=== PATIENT | male | born 1940 | race Caucasian/White ===

== ENCOUNTER → 2021-10-01 | Outpatient (CLI) | payer MEDICARE, OTHER | END | disposition home or self-care (01) | LOC: PLD 11:28 → LAB SHORT 11:28 | DX: D04.4 Carcinoma in situ of skin of scalp and neck (principal) | CPT/HCPCS: 88305 ==

== ENCOUNTER 2022-07-03 10:12 | Day surgery (SDC) | payer OTHER ==
[~2022-07-03] VITALS: Ht 180.3 cm; Wt 85.7 kg
[~2022-07-03 10:12] MED LIST: ALDACTONE25 MG PO; ALOGLIPTIN25 M7 PO; ATOR20; B-12500 MC2 PO; CENTRUM SILVER1 EAC2 PO; Calcium Carbon500 MG PO; ELIQUIS5 M2 PO; ESCI10 PO; FISH OIL 1,2001 EAC4 PO; LEVEMIR FL100 UNIT/2; LISI20 PO; METF500 PO; METO100 PO; VITAMIN D31000 UNI1 PO
--- NOTE | 2022-07-03 10:52 | NUR ---
07/03/22 1052 Marlene Dash IN AT 1035 SONYA IN AT 1036
== END 2022-07-03 13:20 | disposition home or self-care (01) ==
LOC: ORSCSDS 10:12
PROVIDERS: Ophthalmology
PROC: 08DJ3ZZ Extraction of Right Lens, Percutaneous Approach (ICD-10-PCS; principal; 2022-07-03 11:30)
DX: H25.11 Age-related nuclear cataract, right eye (principal); Z96.1 Presence of intraocular lens; E11.9 Type 2 diabetes mellitus without complications; E78.5 Hyperlipidemia, unspecified; I10 Essential (primary) hypertension; F32.A Depression, unspecified; Z79.01 Long term (current) use of anticoagulants; Z79.84 Long term (current) use of oral hypoglycemic drugs; Z79.899 Other long term (current) drug therapy
CPT/HCPCS: 82947; J2001; J2250; J2704; J3010; J3301; J7040; V2632

== ENCOUNTER 2022-10-16 17:39 | Inpatient (IN) | payer OTHER ==
[~2022-10-16] VITALS: Ht 177.8 cm; Wt 83.7 kg
[2022-10-16 18:03] LABS: Base Excess Venous -26.5 mmol/L; Bicarbonate Venous 7.2 mmol/L (24.0-30.0); PCO2 Venous 19.9 mmHg (38-42)
[2022-10-16 18:13] LABS: Source, Urine Foley catheter
[2022-10-16 18:19] LABS: International Normalized Ratio 0.98; Prothrombin Time Results 10.3 Sec (9.7-11.5)
[2022-10-16 18:21] LABS: Appearance, Urine Clear (Clear); Bilirubin, Urine Neg (Neg); Blood, Urine Neg (Neg); Color, Urine Yellow (P-Yellow); Glucose Qualitative, Urine 4+ (Neg); Ketones, Urine 4+ (Neg); Leukocyte Esterase, Urine Neg (Neg); Nitrite, Urine Neg (Neg); Protein, Urine 1+ (Neg); Urobilinogen, Urine NORM (Normal)
[2022-10-16 18:30] LABS: Magnesium, Blood 2.5 mg/dL (1.6-2.4)
[2022-10-16 18:53] LABS: BASOPHILS ABSOLUTE AUTO 0.04 K/mm3 (0.00-0.23); BASOPHILS PERCENT AUTO 0 % (0-2); EOSINOPHILS ABSOLUTE AUTO 0.01 K/mm3 (0.00-0.68); EOSINOPHILS PERCENT AUTO 0 % (0-6); Hematocrit 31.7 % (37.0-53.0); Hemoglobin 10.9 g/dL (13.5-17.5); IMMATURE GRAN ABSOLUTE AUTO 0.37 K/mm3 (0.00-0.10); IMMATURE GRAN PERCENT AUTO 2 % (0-1); LYMPHOCYTES ABSOLUTE AUTO 0.75 K/mm3 (0.84-5.20); LYMPHOCYTES PERCENT AUTO 3 % (21-46); MONOCYTES ABSOLUTE AUTO 1.56 K/mm3 (0.16-1.47); MONOCYTES PERCENT AUTO 7 % (4-13); Mean Corpuscular HGB 36.3 pg (26.0-34.0); Mean Corpuscular Volume 106 fL (80-100); Mean Platelet Volume 10.7 fL (9.1-12.4); NEUTROPHILS ABSOLUTE AUTO 21.44 K/mm3 (1.96-9.15); NEUTROPHILS PERCENT AUTO 89 % (41-73); NRBC ABSOLUTE 0.03 K/mm3 (0.00-0.02); NRBC Auto 0.1 /100 WBC (0.0-0.2); Platelet Count 413 K/mm3 (150-400); RDW Coefficient Variation 14.3 % (11.7-14.2); RDW Standard Deviation 54.3 fL (35.1-46.3); White Blood Cell Count 24.17 K/mm3 (4.00-11.30)
[2022-10-16 19:01] LABS: Mean Corpuscular HGB Conc 34.4 g/dL (31.5-36.5)
[2022-10-16 19:10] LABS: Albumin/Globulin Ratio 0.8 (0.8-1.8); Beta-hydroxybutyrate 121.4 mg/dL (0.2-2.8); Bilirubin, Total 1.2 mg/dL (0.1-1.0); Bun/Creatinine Ratio 43.6 (12.0-20.0); Calcium, Blood 9.2 mg/dL (8.5-10.1); Creatinine, Blood 1.63 mg/dL (0.60-1.20); Globulin, Blood 3.9 g/dL (2.2-4.0); Potassium, Blood 5.3 mmol/L (3.5-5.5); Total Protein, Blood 6.9 g/dL (6.4-8.2)
[2022-10-16 20:21] LABS: Glucose, Blood 529 mg/dL (70-99)
[2022-10-16 21:33] LABS: Base Excess Venous -25.3 mmol/L; Bicarbonate Venous 7.9 mmol/L (24.0-30.0); PCO2 Venous 22.4 mmHg (38-42); pH Blood Venous 7.02 (7.34-7.37)
[2022-10-16 22:00] VITALS: BP 104/61
[2022-10-16 22:12] LABS: Bun/Creatinine Ratio 46.2 (12.0-20.0); Calcium, Blood 8.6 mg/dL (8.5-10.1); Creatinine, Blood 1.56 mg/dL (0.60-1.20); Potassium, Blood 4.5 mmol/L (3.5-5.5)
[2022-10-16 22:15] VITALS: BP 116/101
[2022-10-16 23:15] VITALS: BP 100/61
[2022-10-16 23:30] VITALS: BP 96/67
[2022-10-16 23:45] VITALS: BP 105/60
[2022-10-17] VITALS (53 sets, daily range): BP systolic 91–156; BP diastolic 38–123
--- NOTE | 2022-10-17 00:35 | NUR ---
PATIENT TO ROOM FROM ER AT 2210. PATIENT IS ALERT AND ORIENTED X4. SLOW TO RESPOND AND FORGETFUL AT TIMES. RIGHT EYE SWOLLEN, PUPIL FIXED, PT STATES HX OF CATARACT SURGERY BUT OVER THE LAST FEW WEEK VISION HAS BECOME MORE BLURRY, HOSPITALIST TO ROOM AND HEAD CT W/O CONTRAST ORDERED. 02 SATS >95% ON RA, [place] BREATHING, RR 28, DENIES SOB. HR A. FIB RVR, WITH PVCs, METOPROLOL PUSH GIVEN AND HR NOW A.FIB 100. BP STABLE, PATIENT DENIES CP/PRESSURE. PATIENT WITH NAUSEA AND VOMITING, MEDICATED PER EMAR. PATIENT INDEPENDENT WITH REPOSITIONING.
[2022-10-17 00:47] LABS: Base Excess Venous -21.6 mmol/L; Bicarbonate Venous 10.1 mmol/L (24.0-30.0); PCO2 Venous 21.4 mmHg (38-42); pH Blood Venous 7.15 (7.34-7.37)
[2022-10-17 01:15] LABS: Bun/Creatinine Ratio 47.4 (12.0-20.0); Calcium, Blood 8.6 mg/dL (8.5-10.1); Creatinine, Blood 1.52 mg/dL (0.60-1.20); Potassium, Blood 4.3 mmol/L (3.5-5.5)
[2022-10-17 01:23] LABS: Magnesium, Blood 2.3 mg/dL (1.6-2.4); Phosphorus, Blood 4.1 mg/dL (2.5-4.9)
[2022-10-17 04:32] LABS: Base Excess Venous -17.5 mmol/L; Bicarbonate Venous 12.2 mmol/L (24.0-30.0); PCO2 Venous 27.2 mmHg (38-42)
[2022-10-17 05:11] LABS: Bun/Creatinine Ratio 51.8 (12.0-20.0); Calcium, Blood 8.3 mg/dL (8.5-10.1); Creatinine, Blood 1.39 mg/dL (0.60-1.20); Magnesium, Blood 2.1 mg/dL (1.6-2.4); Phosphorus, Blood 2.4 mg/dL (2.5-4.9); Potassium, Blood 3.8 mmol/L (3.5-5.5)
[2022-10-17 06:25] LABS: BASOPHILS ABSOLUTE AUTO 0.03 K/mm3 (0.00-0.23); BASOPHILS PERCENT AUTO 0 % (0-2); EOSINOPHILS PERCENT AUTO 0 % (0-6); Hematocrit 27.7 % (37.0-53.0); Hemoglobin 9.9 g/dL (13.5-17.5); IMMATURE GRAN ABSOLUTE AUTO 0.16 K/mm3 (0.00-0.10); IMMATURE GRAN PERCENT AUTO 1 % (0-1); LYMPHOCYTES PERCENT AUTO 6 % (21-46); MONOCYTES ABSOLUTE AUTO 1.62 K/mm3 (0.16-1.47); MONOCYTES PERCENT AUTO 8 % (4-13); Mean Corpuscular HGB 35.7 pg (26.0-34.0); Mean Corpuscular HGB Conc 35.7 g/dL (31.5-36.5); Mean Platelet Volume 10.2 fL (9.1-12.4); NEUTROPHILS PERCENT AUTO 85 % (41-73); NRBC ABSOLUTE 0.03 K/mm3 (0.00-0.02); NRBC Auto 0.2 /100 WBC (0.0-0.2); Platelet Count 329 K/mm3 (150-400); RDW Coefficient Variation 14.2 % (11.7-14.2); RDW Standard Deviation 51.1 fL (35.1-46.3); Red Blood Cell Count 2.77 M/mm3 (4.30-5.90); White Blood Cell Count 19.91 K/mm3 (4.00-11.30)
[2022-10-17 06:26] LABS: Mean Corpuscular Volume 100 fL (80-100)
--- NOTE | 2022-10-17 07:01 | NUR ---
SHIFT SUMMARY PATIENT IS ALERT AND ORIENTED X3-4, APPEARS TO BE FORGETFUL AT TIMES. PATIENT PULLED POWERGLIDE AND IV. BED ALARM ON. 02 SATS 95% ON RA. HR A.FIB WITH PVCs 104. BP STABLE. PATIENT USES URINAL. INSULIN DRIP INF WELL D5 1/2 NS WITH KCL. CALL LIGHT IN REACH
--- NOTE | 2022-10-17 07:29 | NUR ---
ASSUMED CARE OF PATIENT.
--- NOTE | 2022-10-17 08:21 | NUR ---
PROVIDER PHONE CALL: Pt HR up into 150's. Dr Salomon called for IV metoprolol push
[2022-10-17 09:21] LABS: Bun/Creatinine Ratio 53.5 (12.0-20.0); Calcium, Blood 8.4 mg/dL (8.5-10.1); Creatinine, Blood 1.27 mg/dL (0.60-1.20); Phosphorus, Blood 2.3 mg/dL (2.5-4.9); Potassium, Blood 3.9 mmol/L (3.5-5.5)
[2022-10-17 11:57] LABS: Base Excess Venous -16.6 mmol/L; Bicarbonate Venous 12.7 mmol/L (24.0-30.0); PCO2 Venous 29.8 mmHg (38-42)
[2022-10-17 12:13] LABS: Bun/Creatinine Ratio 51.3 (12.0-20.0); Calcium, Blood 8.4 mg/dL (8.5-10.1); Creatinine, Blood 1.19 mg/dL (0.60-1.20); Potassium, Blood 4.1 mmol/L (3.5-5.5)
--- NOTE | 2022-10-17 12:15 | NUR ---
PROVIDER UPDATE: Dr Salomon updated on pt status. Dental hygenist identified sore in upper right corner of pt's mouth. This was relayed to provider. He was updated on VBG results as well as agitation and HR.
--- NOTE | 2022-10-17 15:51 | NUR ---
PROVIDER UPDATE: Dr Salomon at bedside for update on status. See new orders
[2022-10-17 16:05] LABS: Bun/Creatinine Ratio 50.5 (12.0-20.0); Calcium, Blood 8.4 mg/dL (8.5-10.1); Creatinine, Blood 1.05 mg/dL (0.60-1.20); Potassium, Blood 3.8 mmol/L (3.5-5.5)
--- NOTE | 2022-10-17 17:28 | NUR ---
PROVIDER UPDATE: Dr Salomon updated on HR in 80's. Digoxin was held.
--- NOTE | 2022-10-17 19:00 | NUR ---
END OF SHIFT ASSESSMENT: NEURO: PATIENT IS ORIENTED TO SELF ONLY. RIGHT FACIAL DROOP WITH PTOSIS. MAXILLOFACIAL CT TODAY. RESP: PATIENT HAS MAINTAINED SATS BETWEEN 95-100 DURING THIS SHIFT. CARDIO: PATIENT HAS BEEN IN AFIB WITH PVC'S ALL DAY AND TACHYCARDIC IN THE 130S-160S. PATIENT RECIEVED PO METOPOLOL AND IS NOW AFIB WITH PVC'S IN THE 80'S. GI/: PATIENT WAS STRAIGHT CATHED FOR RETENTION CONCERNS. HOWEVER, POST CATH BLADDER SCAN STILL SHOWED 400MLS ALTHOUGH BLADDER WAS EMPTY. PATIENT HAS A DARK/ BRUISE LOOKING SPOT ON HIS UPPER GUM. SEE PICTURES IN CHART. IV'S: 20G IV IN RIGHT HAND, 18 GUAGE IN LFA, 18G IN LAC. ALL LINES FLUSHING AND PATENT. SHIFT SUMMARY: PATIENT WAS SEEN BY DENTAL HYGENIST WHO FOUND THE SKIN ROSEY IN HIS MOUTH. SPEECH THERAPY CAME TO DO A SPEECH EVAL AND RECOMENDED A PUREE DIET. LATER THIS EVENING PATIENT WAS COUGHING AFTER RECIEVING APPLE SAUCE FOR MEDICATIONS. THIS WAS REPORTED TO LINE CREWMAN.
--- NOTE | 2022-10-17 19:00 | NUR ---
ASSUMED CARE OF PT AT 1900. PT SPOUSE IN ROOM WITH PT ALONG WITH A SITTER ON THE OUTSIDE OF ROOM LOOKING IN. PT IS CONSTANTLY MOVING AROUND IN BED. RAY IN PLACE. PT PICKING AT IV AND IS REDIRECTABLE AT THIS TIME. VITALS WNL AT THIS TIME. PLEASE SEE FULL ASSESSMENT FOR MORE INFORMATION.
[2022-10-17 20:08] LABS: Calcium, Blood 8.5 mg/dL (8.5-10.1); Potassium, Blood 3.8 mmol/L (3.5-5.5)
--- NOTE | 2022-10-17 20:53 | NUR ---
EPISTASIS NOTED AT THIS TIME. UPON EVALUATION SMALL AMOUNTS OF BLOOD STREAMING DOWN BACK OF THROAT AND UP THROUGH NOSE WHEN SITTING UP. WILL CONTINUE TO MONITOR.
[2022-10-18] VITALS (65 sets, daily range): BP systolic 68–176; BP diastolic 39–145
--- NOTE | 2022-10-18 01:36 | NUR ---
PT CONTINUOUSELY THRASHING IN BED. CALLED DR VELASCO. HALDOL 3 MG ONCE ORDERED. SITTER AT BEDSIDE.
--- NOTE | 2022-10-18 02:50 | NUR ---
PT CONTINUES TO BE VERY RESTLESS AND AGITATED. TRYING TO GET OUT OF BED AND PULLING AT LINES AND BRIEF. PT DENIES HAVING TO USE URINAL AND DENIES PAIN.
[2022-10-18 04:22] LABS: Bun/Creatinine Ratio 42.9 (12.0-20.0); Calcium, Blood 8.5 mg/dL (8.5-10.1); Creatinine, Blood 0.82 mg/dL (0.60-1.20); Potassium, Blood 3.9 mmol/L (3.5-5.5)
[2022-10-18 05:28] LABS: pH Blood Arterial 7.38 (7.35-7.45)
[2022-10-18 05:29] LABS: PCO2 Arterial 30.6 mmHg (35-45)
--- NOTE | 2022-10-18 06:52 | NUR ---
PT INTUBATED AND SEDATED AT 0606 TODAY. ETOM 15 MG AT 0604 ROCC 100MG AT 0605 ETT AT 8.0 -0606 26 GUMS POS COLOR CHANGE POS BREATH SOUNDS MELLISA ABD SOUNDS OG PLACED AT 0613
--- NOTE | 2022-10-18 07:06 | NUR ---
END OF SHIFT SUMMARY PT RESTLESS AND AGITATED ALL THIS SHIFT. PT COGNITIVE LEVEL DECREASED OVERNIGHT WELL. OXYGEN SUPPLEMENTATION NEEDED THIS AM BEFORE INTUBATION. PT BECAME MORE TACHYPNEIC WITH RR 35-40'S. PT BEGAN TO NOT OBEY COMMANDS AND SHIFTING MORE IN BED. PLEASE SEE PREVIOUS NOTE ON INTUBATION.
[2022-10-18 07:21] LABS: BASOPHILS ABSOLUTE AUTO 0.02 K/mm3 (0.00-0.23); BASOPHILS PERCENT AUTO 0 % (0-2); EOSINOPHILS PERCENT AUTO 0 % (0-6); Hematocrit 19.6 % (37.0-53.0); Hemoglobin 7.1 g/dL (13.5-17.5); IMMATURE GRAN ABSOLUTE AUTO 0.15 K/mm3 (0.00-0.10); IMMATURE GRAN PERCENT AUTO 1 % (0-1); LYMPHOCYTES PERCENT AUTO 5 % (21-46); MONOCYTES ABSOLUTE AUTO 1.52 K/mm3 (0.16-1.47); MONOCYTES PERCENT AUTO 11 % (4-13); Mean Corpuscular HGB 35.9 pg (26.0-34.0); Mean Corpuscular HGB Conc 36.2 g/dL (31.5-36.5); Mean Corpuscular Volume 99 fL (80-100); NEUTROPHILS ABSOLUTE AUTO 11.92 K/mm3 (1.96-9.15); NEUTROPHILS PERCENT AUTO 83 % (41-73); Platelet Count 241 K/mm3 (150-400); RDW Coefficient Variation 13.4 % (11.7-14.2); RDW Standard Deviation 47.8 fL (35.1-46.3); Red Blood Cell Count 1.98 M/mm3 (4.30-5.90); White Blood Cell Count 14.31 K/mm3 (4.00-11.30)
[2022-10-18 08:21] LABS: Source, Urine Foley catheter
[2022-10-18 08:27] LABS: Bilirubin, Urine Neg (Neg); Blood, Urine 4+ (Neg); Glucose Qualitative, Urine 3+ (Neg); Ketones, Urine 1+ (Neg); Leukocyte Esterase, Urine Neg (Neg); Nitrite, Urine Neg (Neg); Protein, Urine 2+ (Neg); Specific Gravity, Urine 1.015 (1.003-1.022); Urobilinogen, Urine NORM (Normal)
[2022-10-18 08:32] LABS: Appearance, Urine Hazy (Clear); Color, Urine Yellow (P-Yellow)
[2022-10-18 08:34] LABS: Bacteria Rare /hpf; Squamous Epithelial Cells Few /hpf (Few); White Blood Cells, Urine 0-2 /hpf (0-5)
[2022-10-18 08:35] LABS: Amorphous Light (0-Heavy); Granular Casts 0-2 /lpf (0); Uric Acid Crystals Few /hpf
--- NOTE | 2022-10-18 08:56 | NUR ---
PROVIDER UPDATE: Dr Aranda called and notified of hypotension. see new orders.
--- NOTE | 2022-10-18 12:30 | NUR ---
Initial palliative care consult: Roderick is a 82 year old gentelman with a history of DM type 2 and a-fib. He is in the ICU and was placed on a ventilator earlier today. He has a fungal infection in his sinuses. Dr. Aranda is working to get him transferred to [facility] in [place]. Called to bedside by nursing for support for Roderick's , Ramona. Visited with Ramona at Roderick's bedside. She reports that they recently returned from [place], [place] where they have been for the past several months. They normally snowbird to [place] each year during the winter. Roderick has two sons who are currently in route to the hospital. One son and his are driving from [place] and will be here this afternoon. The second son is flying from [place] into [place] later this evening. Ramona reports that Roderick's brother and sister in law are here locally and are helping out with making some of the arrangements for taking [place]. Ramona states that they haven't had time to unpack their car since returning home from [place]. Her brother in law and sister in law are taking care of the unpacking for her today. Ramona has been in contact with their Production Clerk at [facility], he plans to visit this afternoon. She reports her abbey is very comforting in this situation. Ramona reports feeling very supported at this time. She states that staff have kept her well informed and that she understands the severity of Roderick's illness. She voices that she and their sons may need to be making some tough decisions in the coming days. Emotional support provided. Pt is currently a DNR and plans are underway for a transfer to a higher level of care. PC to remain available for support and assistance with advanced care planning prn.
--- NOTE | 2022-10-18 13:44 | NUR ---
REPORT: Report given to Esdras at [facility]
[2022-10-18 13:50] LABS: Hematocrit 16.2 % (37.0-53.0); Hemoglobin 5.8 g/dL (13.5-17.5)
--- NOTE | 2022-10-18 14:30 | NUR ---
TRANSFER SUMMARY: Pt transferred to [facility] for higher level of care. Report was given to flight nurse and he was taken to [facility] pad by flight crew, ACCOUNT MAINTENANCE REPRESENTATIVE, and security. PICC line placed this AM. Pt was started on vaso pressors, antibiotics, and antifungals. Insulin drip still infusing as well as precedex and propofol. Family at bedside.
--- NOTE | 2022-10-18 17:15 | NUR ---
Received call from Dr. Branch regarding echo read - concerns for possible perforated mitral leaflet and dilated aorta. Report called to [facility]. fast food team member Alena and resident physician. Official report also printed [facility] fast food team member.
== END 2022-10-18 14:30 | disposition short-term general hospital (02) | DRG 637 ==
LOC: ER 17:39 → ICUW 21:07
PROVIDERS: Emergency Medicine; Internal Medicine; Internal Medicine Critical Care Medicine; ADMIT Student in an Organized Health Care Education/Training Program
PROC: 5A1935Z Respiratory Ventilation, Less than 24 Consecutive Hours (ICD-10-PCS; 2022-10-16)
PROC: 0BH17EZ Insertion of Endotracheal Airway into Trachea, Via Natural or Artificial Opening (ICD-10-PCS; 2022-10-16)
PROC: 3E033XZ Introduction of Vasopressor into Peripheral Vein, Percutaneous Approach (ICD-10-PCS; 2022-10-16)
PROC: 4A033R1 Measurement of Arterial Saturation, Peripheral, Percutaneous Approach (ICD-10-PCS; 2022-10-17)
PROC: 02HV33Z Insertion of Infusion Device into Superior Vena Cava, Percutaneous Approach (ICD-10-PCS; principal; 2022-10-18)
PROC: 0D9670Z Drainage of Stomach with Drainage Device, Via Natural or Artificial Opening (ICD-10-PCS; 2022-10-18)
PROC: 30233N1 Transfusion of Nonautologous Red Blood Cells into Peripheral Vein, Percutaneous Approach (ICD-10-PCS; 2022-10-18)
DX: E11.10 Type 2 diabetes mellitus with ketoacidosis without coma (principal); G92.8 Other toxic encephalopathy; J96.90 Respiratory failure, unspecified, unspecified whether with hypoxia or hypercapnia; R57.9 Shock, unspecified; R65.10 Systemic inflammatory response syndrome (SIRS) of non-infectious origin without acute organ dysfunction; N17.9 Acute kidney failure, unspecified; I48.20 Chronic atrial fibrillation, unspecified; L02.01 Cutaneous abscess of face; Z66 Do not resuscitate; E86.0 Dehydration; N28.9 Disorder of kidney and ureter, unspecified; J01.00 Acute maxillary sinusitis, unspecified; J30.9 Allergic rhinitis, unspecified; I50.9 Heart failure, unspecified; I11.0 Hypertensive heart disease with heart failure; I49.3 Ventricular premature depolarization; E86.9 Volume depletion, unspecified; E78.00 Pure hypercholesterolemia, unspecified; M10.9 Gout, unspecified; G31.84 Mild cognitive impairment of uncertain or unknown etiology; I25.10 Atherosclerotic heart disease of native coronary artery without angina pectoris; E11.42 Type 2 diabetes mellitus with diabetic polyneuropathy; Z79.811 Long term (current) use of aromatase inhibitors; Z79.899 Other long term (current) drug therapy; Z96.651 Presence of right artificial knee joint; Z79.4 Long term (current) use of insulin; Z79.02 Long term (current) use of antithrombotics/antiplatelets; Z79.84 Long term (current) use of oral hypoglycemic drugs; Z79.01 Long term (current) use of anticoagulants; Z98.890 Other specified postprocedural states; Z90.49 Acquired absence of other specified parts of digestive tract; Z98.42 Cataract extraction status, left eye; Z87.442 Personal history of urinary calculi
CPT/HCPCS: 31500; 36415; 36430; 36569; 36600; 51701; 51702; 70450; 70487; 71045; 80048; 80053; 81001; 82010; 82803; 82947; 83036; 83735; 83880; 84100; 84132; 84145; 84484; 85014; 85018; 85025; 85610; 86850; 86900; 86901; 86923; 92610; 93005; 93010; 93306; 94002; 99291-25; A9270; C1751; J0289; J0295; J1630; J1815; J2248; J2405; J2543; J2550; J2704; J2765; J3010; J3370; J3475; J7030; J7040; J7050; J7060; J7120; P9016; P9047